=== PATIENT | male | born 2000 | race Caucasian/White ===

== ENCOUNTER 2020-03-18 22:36 | Emergency (ER) | payer SELFPAY ==
[~2020-03-18] VITALS: Ht 180 cm; Wt 61.0 kg
[2020-03-18] MEDS ORDERED: ORPHENADRINE 60 MG/2 ML (NORFLEX) AMP (ED ONLY) IV ONE (23:00)
[2020-03-18] MEDS ORDERED: KETOROLAC 30 MG/ML VIAL IVP ONE (23:00)
[2020-03-18] MEDS ORDERED: CYCL10TA9 PO (23:56)
--- NOTE | 2020-03-18 23:56 | ED Back Pain ---
General Chief Complaint: Back Problems Stated Complaint: BACK PAIN Nursing Triage Note: PT HAS HX OF CHRONIC BACK PAIN; WORSENED BY LIFTING HEAVY OBJECTS TODAY. APPEARS ANXIOUS ON ARRIVAL. HAS PRN MEDS AT HOME, DID NOT TAKE ANYTHING PRIOR TO ARRIVAL. Nursing Sepsis Screen: No Definite Risk Source of Information: Patient Exam Limitations: No Limitations History of Present Illness Date Seen by Provider: Mar 18, 2020 Time Seen by Provider: 22:38 Initial Comments This 19-year-old young man presents to the emergency room via EMS with complaints of severe mid and lower back pain. He reports a long history of chronic back pain. He had been preparing to move as he recently got a new house. He had developed back pain due to the increase activity. While standing in the kitchen he had an extreme pain with spasms. He tried to sit in a warm bath to relax his back. He was then unable to get out of the bathtub and EMS was activated. He often walks with a walker but has been without his walker for the past 3 weeks. He did not take any medications at home despite having a prescription for Percocet. He has HIV and an infectious disease doctor but has no primary care doctor. He is autistic and has 2 service animals which are not with him. He received no medications by EMS. He denies any bowel or bladder dysfunction, groin numbness, or lower extremity weakness. Movement is limited by pain. He reports multiple physicians have told him he should have back surgery. He does not know any of the details of his back pathology. His HIV is treated with Biktarvy. Allergies and Home Medications Allergies Coded Allergies: No Known Drug Allergies (Unverified , 03/18/20) Home Medications Cyclobenzaprine HCl 10 Mg Tablet, 10 MG PO Q8H PRN for SPASMS Prescribed by: BRANDO JOHNS on 03/18/20 5605 Patient Home Medication List Home Medication List Reviewed: Yes Review of Systems Constitutional: no symptoms reported EENTM: no symptoms reported Respiratory: no symptoms reported Cardiovascular: no symptoms reported Gastrointestinal: no symptoms reported Genitourinary: no symptoms reported Musculoskeletal: see HPI Skin: no symptoms reported Psychiatric/Neurological: Anxiety Past Lvjpovs-Tqfmuy-Othsyt Hx Past Med/Social Hx: Reviewed Nursing Past Med/Soc Hx Patient Social History Alcohol Use: Denies Use Recreational Drug Use: No Smoking Status: Never a Smoker 2nd Hand Smoke Exposure: No Recent Foreign Travel: No Contact w/Someone Who Travel: No Recent Infectious Disease Expo: No Recent Hopitalizations: No Physical Abuse: No Sexual Abuse: No Mistreated: No Fear: No Seasonal Allergies Seasonal Allergies: No Past Medical History Surgeries: No Respiratory: Yes Asthma Cardiac: No Neurological: No Genitourinary: No Gastrointestinal: No Musculoskeletal: Yes Chronic Back Pain Endocrine: No HEENT: No Cancer: No Psychosocial: No Integumentary: No Blood Disorders: Yes (HIV) Physical Exam Vital Signs Vital Signs - First Documented 03/18/20 22:46 Temp 36.9 Pulse 61 Resp 18 B/P (MAP) 122/66 (84) Pulse Ox 98 O2 Delivery Room Air Capillary Refill : Less Than 3 Seconds Height, Weight, BMI Height: '" Weight: lbs. oz. kg; 18.00 BMI Method: General Appearance: WD/WN, Mild Distress HEENT: PERRL/EOMI, Normal ENT Inspection Neck: Normal Inspection Cardiovascular: Regular Rate, Rhythm, No Edema, No Murmur Respiratory: Lungs Clear, Normal Breath Sounds, No Accessory Muscle Use, No Respiratory Distress Gastrointestinal: Normal Bowel Sounds, Non Tender, Soft Back: Normal Inspection, Other (Generalized tenderness throughout the lower thoracic and lumbar spine and paraspinous muscles) Extremity: Normal Inspection, No Pedal Edema Neurologic/Psychiatric: Alert, Oriented x3, No Motor/Sensory Deficits, fork lift technician II- XII Norm as Tested, Other (anxious) Progress/Results/Core Measures Results/Orders My Orders Orders - BRANDO AUGUSTIN MD Ed Iv/Invasive Line Start (03/18/20 22:53) Ketorolac Injection (Toradol Injection) (03/18/20 23:00) Orphenadrine Inj (Ed Only) (Norflex Inje (03/18/20 23:00) Medications Given in ED Vital Signs/I&O 03/18/20 03/18/20 22:46 23:57 Temp 36.9 Pulse 61 68 Resp 18 16 B/P (MAP) 122/66 (84) 122/66 Pulse Ox 98 99 O2 Delivery Room Air Room Air Blood Pressure Mean: 84 Progress Progress Note : Progress Note Patient was treated with Toradol and Norflex with significant improvement in his pain. Departure Impression Primary Impression: Chronic back pain Qualified Codes: M54.9 - Dorsalgia, unspecified; G89.29 - Other chronic pain Disposition: HOME, SELF-CARE Condition: Improved Departure-Patient Inst. Decision time for Depature: 23:39 Referrals: UNKNOWN (PCP/Family) Primary Care Physician Patient Instructions: Low Back Pain (DC) Add. Discharge Instructions: You may use ibuprofen up to 600 mg every 6 hours as needed for pain. Use your Percocet as prescribed for backup pain. Use ibuprofen only for short-term rel ief of pain until you review with your primary care provider. For muscle spasms or tension you may use cyclobenzaprine as prescribed. Avoid strenuous activity or heavy lifting until pain resolves. Follow-up with your primary care provider. Please follow-up with your primary care provider soon as possible. Return to care if you have worsening symptoms, especially if you develop true weakness in your legs, numbness in your groin, or difficulty with bowel or bladder control. All discharge instructions reviewed with patient and/or family. Voiced understanding. Scripts Cyclobenzaprine HCl (Cyclobenzaprine HCl) 10 Mg Tablet 10 MG PO Q8H PRN for SPASMS, #10 TAB 0 Refills Prov: BRANDO AUGUSTIN MD 03/18/20 BRANDO AUGUSTIN MD Mar 18, 2020 23:56
[2020-03-18 23:57] VITALS: BP 122/66
== END 2020-03-19 00:05 | disposition home or self-care (01) ==
LOC: ER 22:38
DX: M54.9 Dorsalgia, unspecified (principal); G89.29 Other chronic pain; B20 Human immunodeficiency virus [HIV] disease; F84.0 Autistic disorder; J45.909 Unspecified asthma, uncomplicated